=== PATIENT | male | born 1965 | race Two or more races ===

== ENCOUNTER 2022-09-06 14:40 | Inpatient (IN) | payer OTHER ==
[2022-09-06] MEDS ORDERED: IBUPROFEN 600 MG TABLET (FP) PO PRN (17:25)
[2022-09-06] MEDS ORDERED: BENZONATATE 200 MG CAPSULE PO PRN (17:25)
[2022-09-06] MEDS ORDERED: NICOTINE 10 MG CARTRIDGE (INHALER) IH PRN (17:25)
[2022-09-06] MEDS ORDERED: P-EPHED 60MG/TRIPROLIDI 2.5MG TABLET PO PRN (17:25)
[2022-09-06] MEDS ORDERED: MAG HYDROX/AL HYDROX/SIMETH 30 ML UNIT-DOSE CUP PO PRN (17:25)
[2022-09-06] MEDS ORDERED: guaiFENesin 600 MG TABLET.ER (FP) PO PRN (17:25)
[2022-09-06] MEDS ORDERED: BENZOCAINE/MENTHOL (CHLORASEPTIC ) LOZENGE MM PRN (17:25)
[2022-09-06] MEDS ORDERED: ACETAMINOPHEN 325 MG TABLET (FP) PO PRN (17:25)
[2022-09-06] MEDS ORDERED: TUBERCULIN PPD 5 TU/0.1ML SYRINGE (IN PATIENT USE ONLY) ID ONE (17:25)
[2022-09-06] MEDS ORDERED: LOPERAMIDE HCL 2 MG CAPSULE PO PRN (17:25)
[2022-09-06] MEDS ORDERED: IBUPROFEN 400 MG TABLET (FP) PO PRN (17:25)
[2022-09-06] MEDS ORDERED: NICOTINE POLACRILEX 2 MG GUM BC PRN (17:25)
[2022-09-06] MEDS: THIAMINE HCL 100 MG TABLET (FP) PO SCH (22:44)
[2022-09-06] MEDS: MELATONIN 5 MG TABLETS PO SCH (22:44)
[2022-09-06 23:06] VITALS: RESP 18
[2022-09-07] MEDS: PRENATAL VITAMINS W/ FOLIC ACID TABLET (FP) PO SCH (10:17)
[2022-09-07 11:34] LABS: HEMATOCRIT 41.6 % (35.4-49); HEMOGLOBIN 14.2 GM/dL (11.7-16.9); MCH 30.9 pg (25.7-33.7); MEAN CELL VOLUME 90.8 fl (80-96); MEAN PLT VOLUME 7.6 fl (7.5-11.1); PLATELET COUNT 264 10^3/uL (134-434); RBC 4.58 M/mm3 (4.00-5.60); RDW 13.8 % (11.9-15.9)
[2022-09-07 12:04] LABS: ALBUMIN 3.2 g/dl (3.4-5.0)
[2022-09-07 12:05] LABS: BLOOD UREA NITROGEN 19.1 mg/dL (7-18)
[2022-09-07 12:07] LABS: CREATININE 1.2 mg/dL (0.55-1.3)
[2022-09-07 12:08] LABS: BILIRUBIN,TOTAL 0.2 mg/dL (0.2-1); CALCIUM 8.5 mg/dL (8.5-10.1); TOT PROT 7.3 g/dl (6.4-8.2)
[2022-09-07 17:19] LABS: HIV INTERPRETATION NEGATIVE (NEGATIVE)
[2022-09-07] MEDS: THIAMINE HCL 100 MG TABLET (FP) PO SCH (21:27)
[2022-09-07] MEDS: MELATONIN 5 MG TABLETS PO SCH (21:27)
[2022-09-07] MEDS: hydrOXYzine PAMOATE 25 MG CAPSULE (FP) PO PRN (21:28)
[2022-09-08] MEDS: hydrOXYzine PAMOATE 25 MG CAPSULE (FP) PO PRN ×2 (06:34→21:41)
[2022-09-08] MEDS: PRENATAL VITAMINS W/ FOLIC ACID TABLET (FP) PO SCH (10:10)
[2022-09-08] MEDS: MELATONIN 5 MG TABLETS PO SCH (21:41)
[2022-09-08] MEDS: THIAMINE HCL 100 MG TABLET (FP) PO SCH (21:41)
[2022-09-09] MEDS: PRENATAL VITAMINS W/ FOLIC ACID TABLET (FP) PO SCH (10:10)
[2022-09-09] MEDS: MELATONIN 5 MG TABLETS PO SCH (21:47)
[2022-09-09] MEDS: THIAMINE HCL 100 MG TABLET (FP) PO SCH (21:47)
[2022-09-09] MEDS: hydrOXYzine PAMOATE 25 MG CAPSULE (FP) PO PRN (21:47)
[2022-09-10 06:47] VITALS: BP 149/90; PULSE 65; TEMP 97.7
[2022-09-10] MEDS: PRENATAL VITAMINS W/ FOLIC ACID TABLET (FP) PO SCH (10:39)
[2022-09-10 11:15] LABS: URINE APPEARANCE CLEAR; URINE BILIRUBIN NEGATIVE (NEGATIVE); URINE COLOR YELLOW; URINE GLUCOSE (UA) NEGATIVE (NEGATIVE); URINE KETONE NEGATIVE (NEGATIVE); URINE LEUK ESTERASE NEGATIVE (NEGATIVE); URINE NITRITE NEGATIVE (NEGATIVE); URINE PROTEIN NEGATIVE (NEGATIVE); URINE UROBILINOGEN 0.2 mg/dL (0.2-1.0)
== END 2022-09-10 13:00 | disposition left against medical advice (07) | DRG 770 ==
LOC: YASAS 14:40 → Y5N 21:59
PROVIDERS: ADMIT Allergy & Immunology; ATTEND Psychiatry & Neurology Pain Medicine
PROC: HZ42ZZZ Group Counseling for Substance Abuse Treatment, Cognitive-Behavioral (ICD-10-PCS; principal; 2022-09-06)
DX: F14.20 Cocaine dependence, uncomplicated (principal); F16.20 Hallucinogen dependence, uncomplicated; F10.20 Alcohol dependence, uncomplicated; F12.20 Cannabis dependence, uncomplicated; F17.210 Nicotine dependence, cigarettes, uncomplicated; Z91.410 Personal history of adult physical and sexual abuse; Z28.310 Unvaccinated for COVID-19; Z28.9 Immunization not carried out for unspecified reason
CPT/HCPCS: 36415; 71045-TC-FY; 80053; 81003; 85027; 86780; 87389; C9803-CS; U0003; U0005

== ENCOUNTER 2022-12-09 15:13 | Inpatient (IN) | payer OTHER ==
[2022-12-09 16:25] VITALS: BMI 19.9
[2022-12-09] MEDS ORDERED: LOPERAMIDE HCL 2 MG CAPSULE PO PRN (17:27)
[2022-12-09] MEDS ORDERED: BISMUTH SUBSALICYLATE 524 MG/30 ML PO PRN (17:27)
[2022-12-09] MEDS ORDERED: NICOTINE 10 MG CARTRIDGE (INHALER) IH PRN (17:27)
[2022-12-09] MEDS ORDERED: BENZOCAINE/MENTHOL (CHLORASEPTIC ) LOZENGE MM PRN (17:27)
[2022-12-09] MEDS ORDERED: IBUPROFEN 600 MG TABLET (FP) PO PRN (17:27)
[2022-12-09] MEDS ORDERED: DICYCLOMINE HCL 10 MG CAPSULE PO PRN (17:27)
[2022-12-09] MEDS ORDERED: hydrOXYzine PAMOATE 25 MG CAPSULE (FP) PO PRN (17:27)
[2022-12-09] MEDS ORDERED: NALOXONE HCL 0.4 MG/ML VIAL IM PRN (17:27)
[2022-12-09] MEDS ORDERED: IBUPROFEN 400 MG TABLET (FP) PO PRN (17:27)
[2022-12-09] MEDS ORDERED: NALOXONE HCL (KLOXXADO) 8 MG SPRAY NS PRN (17:27)
[2022-12-09] MEDS ORDERED: BENZONATATE 200 MG CAPSULE PO PRN (17:27)
[2022-12-09] MEDS ORDERED: MAG HYDROX/AL HYDROX/SIMETH 30 ML UNIT-DOSE CUP PO PRN (17:27)
[2022-12-09] MEDS ORDERED: MAGNESIUM HYDROX 2400MG/30ML ORAL SUSPENSION 30 ML CUP PO PRN (17:27)
[2022-12-09] MEDS ORDERED: ONDANSETRON *ODT* 4 MG TABLET SL PRN (17:27)
[2022-12-09] MEDS ORDERED: ACETAMINOPHEN 325 MG TABLET (FP) PO PRN (17:27)
[2022-12-09] MEDS ORDERED: POLYETHYLENE GLYCOL (HEALTHYLAX) 3350 17 GM PACKET PO PRN (17:27)
[2022-12-09] MEDS ORDERED: guaiFENesin 600 MG TABLET.ER (FP) PO PRN (17:27)
[2022-12-09] MEDS: THIAMINE HCL 100 MG TABLET (FP) PO SCH (22:17)
[2022-12-09] MEDS: MELATONIN 5 MG TABLETS PO SCH (22:17)
[2022-12-10] MEDS: PRENATAL VITAMINS W/ FOLIC ACID TABLET (FP) PO SCH (09:41)
[2022-12-10] MEDS: diazePAM 5 MG TABLET PO SCH ×3 (10:48→22:35)
[2022-12-10 11:14] LABS: HEMATOCRIT 39.3 % (35.4-49); HEMOGLOBIN 12.9 GM/dL (11.7-16.9); MCH 30.1 pg (25.7-33.7); MCHC 32.7 g/dl (32.0-35.9); MEAN PLT VOLUME 7.9 fl (7.5-11.1); PLATELET COUNT 280 10^3/uL (134-434); RBC 4.27 M/mm3 (4.00-5.60); RDW 13.9 % (11.9-15.9); WHITE BLOOD COUNT 7.7 K/mm3 (4.0-10.0)
[2022-12-10 11:17] LABS: ALBUMIN 2.8 g/dl (3.4-5.0); BLOOD UREA NITROGEN 14.5 mg/dL (7-18); CALCIUM 8.6 mg/dL (8.5-10.1)
[2022-12-10 11:21] LABS: CREATININE 1.2 mg/dL (0.55-1.3)
[2022-12-10 11:22] LABS: BILIRUBIN,TOTAL 0.5 mg/dL (0.2-1); TOT PROT 6.6 g/dl (6.4-8.2)
[2022-12-10] MEDS: MELATONIN 5 MG TABLETS PO SCH (22:35)
[2022-12-10] MEDS: THIAMINE HCL 100 MG TABLET (FP) PO SCH (22:35)
[2022-12-11] MEDS: diazePAM 5 MG TABLET PO SCH ×4 (05:54→22:18)
[2022-12-11] MEDS: PRENATAL VITAMINS W/ FOLIC ACID TABLET (FP) PO SCH (10:22)
[2022-12-11] MEDS: MELATONIN 5 MG TABLETS PO SCH (22:17)
[2022-12-11] MEDS: THIAMINE HCL 100 MG TABLET (FP) PO SCH (22:17)
[2022-12-12] MEDS: METHOCARBAMOL 500 MG TABLET PO PRN ×3 (02:15→22:24)
[2022-12-12] MEDS: diazePAM 5 MG TABLET PO PRN ×2 (02:17→10:29)
[2022-12-12] MEDS: diazePAM 5 MG TABLET PO SCH ×3 (05:31→22:23)
[2022-12-12] MEDS: PRENATAL VITAMINS W/ FOLIC ACID TABLET (FP) PO SCH (10:30)
[2022-12-12] MEDS ORDERED: P-EPHED 60MG/TRIPROLIDI 2.5MG TABLET PO PRN (21:28)
[2022-12-12] MEDS: MELATONIN 5 MG TABLETS PO SCH (22:23)
[2022-12-12] MEDS: THIAMINE HCL 100 MG TABLET (FP) PO SCH (22:23)
[2022-12-13] MEDS: diazePAM 5 MG TABLET PO SCH ×2 (05:57→17:29)
[2022-12-13] MEDS: PRENATAL VITAMINS W/ FOLIC ACID TABLET (FP) PO SCH (10:58)
[2022-12-13] MEDS: MELATONIN 5 MG TABLETS PO SCH (22:19)
[2022-12-13] MEDS: THIAMINE HCL 100 MG TABLET (FP) PO SCH (22:19)
[2022-12-13] MEDS: METHOCARBAMOL 500 MG TABLET PO PRN (22:19)
[2022-12-13 22:56] VITALS: RESP 16
[2022-12-14] MEDS ORDERED: diazePAM 5 MG TABLET PO ONE (06:00)
[2022-12-14 08:52] VITALS: BP 149/89; PULSE 90; TEMP 98.1
[2022-12-14] MEDS: PRENATAL VITAMINS W/ FOLIC ACID TABLET (FP) PO SCH (09:43)
== END 2022-12-14 10:13 | disposition home or self-care (01) | DRG 774 ==
LOC: YASAS 15:13 → Y3N 17:53
PROVIDERS: ADMIT Allergy & Immunology; ATTEND Surgery
PROC: HZ2ZZZZ Detoxification Services for Substance Abuse Treatment (ICD-10-PCS; principal; 2022-12-09)
DX: F10.230 Alcohol dependence with withdrawal, uncomplicated (principal); F14.20 Cocaine dependence, uncomplicated; F17.210 Nicotine dependence, cigarettes, uncomplicated; M25.562 Pain in left knee; Z99.89 Dependence on other enabling machines and devices; Z28.310 Unvaccinated for COVID-19; Z28.9 Immunization not carried out for unspecified reason
CPT/HCPCS: 36415; 71046-TC-FY; 80053; 85027; 86780; 87635; 87811; Q0162

== ENCOUNTER 2023-07-20 14:31 | Inpatient (IN) | payer OTHER ==
[2023-07-20 16:43] VITALS: BMI 19.9
[2023-07-20] MEDS ORDERED: BENZOCAINE/MENTHOL (CHLORASEPTIC ) LOZENGE MM PRN (17:15)
[2023-07-20] MEDS ORDERED: LOPERAMIDE HCL 2 MG CAPSULE PO PRN (17:15)
[2023-07-20] MEDS ORDERED: ACETAMINOPHEN 325 MG TABLET (FP) PO PRN (17:15)
[2023-07-20] MEDS ORDERED: MAG HYDROX/AL HYDROX/SIMETH 30 ML UNIT-DOSE CUP PO PRN (17:15)
[2023-07-20] MEDS ORDERED: BISMUTH SUBSALICYLATE 524 MG/30 ML PO PRN (17:15)
[2023-07-20] MEDS ORDERED: guaiFENesin 600 MG TABLET.ER (FP) PO PRN (17:15)
[2023-07-20] MEDS ORDERED: MAGNESIUM HYDROX 2400MG/30ML ORAL SUSPENSION 30 ML CUP PO PRN (17:15)
[2023-07-20] MEDS ORDERED: NALOXONE HCL (KLOXXADO) 8 MG SPRAY NS PRN (17:15)
[2023-07-20] MEDS ORDERED: POLYETHYLENE GLYCOL (HEALTHYLAX) 3350 17 GM PACKET PO PRN (17:15)
[2023-07-20] MEDS ORDERED: hydrOXYzine PAMOATE 25 MG CAPSULE (FP) PO PRN (17:15)
[2023-07-20] MEDS ORDERED: IBUPROFEN 600 MG TABLET (FP) PO PRN (17:15)
[2023-07-20] MEDS ORDERED: ONDANSETRON *ODT* 4 MG TABLET SL PRN (17:15)
[2023-07-20] MEDS ORDERED: NALOXONE HCL 0.4 MG/ML VIAL IM PRN (17:15)
[2023-07-20] MEDS ORDERED: DICYCLOMINE HCL 10 MG CAPSULE PO PRN (17:15)
[2023-07-20] MEDS ORDERED: BENZONATATE 200 MG CAPSULE PO PRN (17:15)
[2023-07-20] MEDS ORDERED: NICOTINE POLACRILEX 2 MG GUM BUC PRN (17:15)
[2023-07-20] MEDS ORDERED: diazePAM 5 MG TABLET ONE (19:24)
[2023-07-20] MEDS: diazePAM 5 MG TABLET PO PRN (19:28)
[2023-07-20] MEDS: IBUPROFEN 400 MG TABLET (FP) PO PRN (19:30)
[2023-07-20] MEDS ORDERED: IBUPROFEN 400 MG TABLET (FP) PO ONE (19:30)
[2023-07-20] MEDS: diazePAM 5 MG TABLET PO SCH (22:41)
[2023-07-20] MEDS: METHOCARBAMOL 500 MG TABLET PO PRN (22:41)
[2023-07-20] MEDS: MELATONIN 5 MG TABLETS PO SCH (22:42)
[2023-07-20] MEDS: THIAMINE HCL 100 MG TABLET (FP) PO SCH (22:42)
[2023-07-21] MEDS: amLODIPine BESYLATE 5 MG TABLET (FP) PO SCH (10:31)
[2023-07-21] MEDS: PRENATAL VITAMINS W/ FOLIC ACID TABLET (FP) PO SCH (10:31)
[2023-07-21 13:26] LABS: CHLORIDE 108 mmol/L (98-107); POTASSIUM 3.9 mmol/L (3.5-5.1); SODIUM 141 mmol/L (136-145)
[2023-07-21 13:28] LABS: ALBUMIN 2.9 g/dl (3.4-5.0); ANION GAP 6 mmol/L (4-13); BLOOD UREA NITROGEN 14.2 mg/dL (7-18); CALCIUM 8.3 mg/dL (8.5-10.1); CO2 27 mmol/L (21-32); GLUCOSE,RANDOM 111 mg/dL (74-106)
[2023-07-21 13:31] LABS: HEMATOCRIT 37.8 % (35.4-49); HEMOGLOBIN 12.8 GM/dL (11.7-16.9); MCH 30.9 pg (25.7-33.7); MCHC 33.8 g/dl (32.0-35.9); MEAN CELL VOLUME 91.4 fl (80-96); MEAN PLT VOLUME 7.5 fl (7.5-11.1); PLATELET COUNT 236 10^3/uL (134-434); RBC 4.13 M/mm3 (4.00-5.60); RDW 14.1 % (11.9-15.9); SGOT/AST 28 U/L (15-37); SGPT/ALT 33 U/L (13-61); WHITE BLOOD COUNT 6.3 K/mm3 (4.0-10.0)
[2023-07-21 13:33] LABS: BILIRUBIN,TOTAL 0.4 mg/dL (0.2-1); TOT PROT 6.3 g/dl (6.4-8.2)
[2023-07-21 13:34] LABS: ALK PHOS 63 U/L (45-117)
[2023-07-22] MEDS: diazePAM 5 MG TABLET PO SCH (05:37)
[2023-07-23] MEDS: diazePAM 5 MG TABLET PO SCH (06:05)
[2023-07-24] MEDS: diazePAM 5 MG TABLET PO ONE (05:40)
[2023-07-24 09:19] VITALS: BP 141/83; PULSE 69; RESP 18; TEMP 97.5
== END 2023-07-24 11:40 | disposition home or self-care (01) | DRG 774 ==
LOC: YASAS 14:31 → Y6N 18:40
PROVIDERS: ADMIT Allergy & Immunology; ATTEND Allergy & Immunology
PROC: HZ2ZZZZ Detoxification Services for Substance Abuse Treatment (ICD-10-PCS; principal; 2023-07-20)
DX: F10.230 Alcohol dependence with withdrawal, uncomplicated (principal); F14.20 Cocaine dependence, uncomplicated; F12.20 Cannabis dependence, uncomplicated; F16.10 Hallucinogen abuse, uncomplicated; F17.210 Nicotine dependence, cigarettes, uncomplicated; F19.282 Other psychoactive substance dependence with psychoactive substance-induced sleep disorder; F39 Unspecified mood [affective] disorder; I10 Essential (primary) hypertension; Z62.810 Personal history of physical and sexual abuse in childhood; Z91.410 Personal history of adult physical and sexual abuse; Z63.0 Problems in relationship with spouse or partner; Z99.89 Dependence on other enabling machines and devices
CPT/HCPCS: 36415; 80053; 80305; 80307; 85027; 86780; 87635; 87811; 93005; 93010